=== PATIENT | male | born 1970 | race Asian ===

== ENCOUNTER 2017-09-22 16:16 | Inpatient (IN) | payer OTHER ==
[2017-09-22 17:59] VITALS: BMI 28.8
--- NOTE | 2017-09-22 20:40 | HP ---
CIWA Score - CIWA Score Nausea/Vomitin-Mild Nausea/No Vomiting Muscle Tremors: 4-Moderate,w/Arms Extend Anxiety: 4-Mod. Anxious/Guarded Agitation: 4-Moderately Restless Paroxysmal Sweats: No Perspiration Orientation: 0-Oriented Tacttile Disturbances: 0-None Auditory Disturbances: 0-None Visual Disturbances: 0-None Headache: 2-Mild CIWA-Ar Total Score: 15 Admission ROS BHS - HPI Chief Complaint: C/O WITHDRAWAL SX'S FROM ALCOHOL. SEEKING DETOX TXMENT. Allergies/Adverse Reactions: Allergies Allergy/AdvReac Type Severity Reaction Status Date / Time No Known Allergies Allergy Verified 09/22/17 20:51 History of Present Illness: 47 Y.O. MALE WITH LONG HX/O ALCOHOLISM SEEKING DETOX TXMENT. CLIENT WAS REFERRED BY [facility] AFTER PRESENTING THERE FOR DETOX. HE REPORTS LONGEST CLEAN TIME 28 DAYS WHILE IN A REHAB. LAST DETOX 3 WEEKS AGO AT [facility]. Exam Limitations: No Limitations - Ebola screening Have you traveled outside of the country in the last 21 days: No Have you had contact with anyone from an Ebola affected area: No Have you been sick,other than usual withdrawal symptoms: No Do you have a fever: No - Review of Systems Constitutional: Chills, Loss of Appetite, Night Sweats, Changes in sleep EENT: reports: Recent change in vision (" I NEED GLASSES") Respiratory: reports: No Symptoms reported Cardiac: reports: No Symptoms Reported GI: reports: Nausea, Poor Appetite, Poor Fluid Intake : reports: No Symptoms Reported Musculoskeletal: reports: No Symptoms Reported Integumentary: reports: No Symptoms Reported Neuro: reports: Seizure (LAST 09/07 HEAD INJURY) Hematology: reports: No Symptoms Reported Psychiatric: reports: Depressed Other Systems: Reviewed and Negative Patient History - Patient Medical History Hx Anemia: No Hx Asthma: No Hx Chronic Obstructive Pulmonary Disease (COPD): No Hx Cancer: No Hx Cardiac Disorders: No Hx Congestive Heart Failure: No Hx Hypertension: No Hx Hypercholesterolemia: No Hx Pacemaker: No HX Cerebrovascular Accident: No Hx Seizures: No Hx Dementia: No Hx Diabetes: No Hx Gastrointestinal Disorders: No Hx Liver Disease: No Hx Genitourinary Disorders: No Hx Sexually Transmitted Disorders: No Hx Renal Disease (ESRD): No Hx Thyroid Disease: No Hx Human Immunodeficiency Virus (HIV): No Hx Hepatitis C: No Hx Depression: Yes (CLARA AND SEROQUEL) Hx Suicide Attempt: No Hx Bipolar Disorder: No Hx Schizophrenia: No Other Medical History: DENIES - Patient Surgical History Past Surgical History: Yes Hx Cholecystectomy: Yes (2016) Hx Orthopedic Surgery: Yes (R A ND ;L HIP SX 2006, R KNEE FX REPAIR 2016) Anesthesia Reaction: No - PPD History Previous Implant?: Yes Documented Results: Positive w/o proof Implanted On Prior R Admission?: No PPD to be Administered?: No - Smoking Cessation Smoking history: Current every day smoker Have you smoked in the past 12 months: Yes Aproximately how many cigarettes per day: 20 Cigars Per Day: 0 Hx Chewing Tobacco Use: No Initiated information on smoking cessation: Yes 'Breaking Loose' booklet given: 09/22/17 - Substance & Tx. History Hx Alcohol Use: Yes Hx Substance Use: Yes Substance Use Type: Alcohol Hx Substance Use Treatment: Yes ([facility]) - Substances Abused VODKA Route: Oral Frequency: Daily Amount used: 8 PINTS Age of first use: 16 (MONTHS) Date of Last Use: 09/22/17 (3 PINTS) Family Disease History - Family Disease History Family Disease History: Heart Disease: Father (ALCOHOLISM), Mother, Other: Father, Brother (ALCOHOLISM), Sister (ALCOHOLISM ) Admission Physical Exam BHS - Vital Signs Vital Signs: Vital Signs - 24 hr 09/22/17 17:54 Temperature 97.6 F Pulse Rate 82 Respiratory 19 Rate Blood Pressure 132/81 - Physical General Appearance: Yes: Appropriately Dressed, Mild Distress, Tremorous, Anxious HEENTM: Yes: EOMI, Normocephalic, Normal Voice, MIGUEL, Pharynx Normal, Other ( MISSING TEETH) Respiratory: Yes: Chest Non-Tender, Lungs Clear, Normal Breath Sounds, No Respiratory Distress, No Accessory Muscle Use Neck: Yes: No masses,lesions,Nodules, Supple, Trachea in good position Breast: Yes: Breast Exam Deferred Cardiology: Yes: Regular Rhythm, Regular Rate, S1, S2 Abdominal: Yes: Normal Bowel Sounds, Non Tender, Soft, Protuberent, Surgical Scar Genitourinary: Yes: Within Normal Limits Back: Yes: Normal Inspection Musculoskeletal: Yes: full range of Motion, Gait Steady, Joint Stiffness Extremities: Yes: Normal Range of Motion, Non-Tender, Tremors, Other ( SUPERFICIAL ABRASIONS TO BLE) Neurological: Yes: Alert, Motor Strength 5/5, Normal Mood/Affect Integumentary: Yes: Normal Color, Dry, Warm Lymphatic: Yes: Within Normal Limits - Diagnostic (1) Alcohol dependence with uncomplicated withdrawal Current Visit: Yes Status: Chronic (2) Nicotine dependence Current Visit: Yes Status: Chronic Qualifiers: Nicotine product type: cigarettes Substance use status: uncomplicated Qualified Code(s): F17.210 - Nicotine dependence, cigarettes, uncomplicated (3) History of positive PPD Current Visit: Yes Status: Chronic Cleared for Admission [facility] - Detox or Rehab [facility] Level of Care: Medically Managed Detox Regimen/Protocol: Librium Claeared for Rehab Admission: No [facility] Breath Alcohol Content Breath Alcohol Content: 0 Urine Drug Screen - Results Drug Screen Negative: No Urine Drug Screen Results: BZO-Benzodiazepines
[2017-09-22] MEDS ORDERED: P-EPHED 60MG/TRIPROLIDI 2.5MG TABLET PO PRN (20:51)
[2017-09-22] MEDS ORDERED: NICOTINE POLACRILEX 4 MG GUM BC PRN (20:51)
[2017-09-22] MEDS ORDERED: MAGNESIUM CITRATE 300 ML BOTTLE PO PRN (20:51)
[2017-09-22] MEDS ORDERED: guaiFENesin/D-METHORPHAN HB 10 ML UNIT-DOSE CUPS PO PRN (20:51)
[2017-09-22] MEDS ORDERED: ACETAMINOPHEN 325 MG TABLET (FP) PO PRN (20:51)
[2017-09-22] MEDS ORDERED: hydrOXYzine PAMOATE 50 MG CAPSULE (FP) PO PRN (20:51)
[2017-09-22] MEDS ORDERED: MAGNESIUM HYDROX 2400MG/30ML ORAL SUSPENSION 30 ML CUP PO PRN (20:51)
[2017-09-22] MEDS ORDERED: MAG HYDROX/AL HYDROX/SIMETH 30 ML UNIT-DOSE CUP PO PRN (20:51)
[2017-09-22] MEDS ORDERED: MENTHOL/PHENOL 1 EACH UD MM PRN (20:51)
[2017-09-22] MEDS ORDERED: chlordiazePOXIDE HCL 25 MG CAPSULE PO PRN (20:51)
[2017-09-22] MEDS ORDERED: IBUPROFEN 400 MG TABLET (FP) PO PRN (20:51)
[2017-09-22] MEDS ORDERED: LOPERAMIDE HCL 2 MG CAPSULE PO PRN (20:51)
[2017-09-22] MEDS ORDERED: THIAMINE HCL 100 MG TABLET (FP) PO SCH (22:00)
[2017-09-22] MEDS: chlordiazePOXIDE HCL 25 MG CAPSULE PO SCH (22:47)
[2017-09-23 00:09] LABS: URINE APPEARANCE CLEAR; URINE BILIRUBIN NEGATIVE (NEGATIVE); URINE BLOOD NEGATIVE (NEGATIVE); URINE COLOR YELLOW; URINE GLUCOSE (UA) NEGATIVE (NEGATIVE); URINE KETONE NEGATIVE (NEGATIVE); URINE LEUK ESTERASE NEGATIVE (NEGATIVE); URINE NITRITE NEGATIVE (NEGATIVE); URINE PROTEIN NEGATIVE (NEGATIVE); URINE UROBILINOGEN NEGATIVE mg/dL (0.2-1.0)
[2017-09-23] MEDS: chlordiazePOXIDE HCL 25 MG CAPSULE PO SCH ×2 (06:17→11:05)
[2017-09-23 09:10] VITALS: BP 124/82; PULSE 76; TEMP 97.6
--- NOTE | 2017-09-23 09:58 | PN ---
S CIWA - CIWA Score Nausea/Vomitin Muscle Tremors: 3 Anxiety: 3 Agitation: 2 Paroxysmal Sweats: 1-Minimal Palms Moist Orientation: 0-Oriented Tacttile Disturbances: 1-Very Mild Itch/Numbness Auditory Disturbances: 1-Very Mild Visual Disturbances: 0-None Headache: 2-Mild CIWA-Ar Total Score: 16 BHS Progress Note (SOAP) Subjective: alert,irritable,anxious,interrupted sleep,tremor Objective: 09/23/17 09:56 Laboratory Last Values Urine Color Yellow 09/22/17 00:00 Urine Appearance Clear 09/22/17 00:00 Urine pH 6.0 (5.0-8.0) 09/22/17 00:00 Ur Specific [place] 1.024 (1.001-1.035) 09/22/17 00:00 Urine Protein Negative (NEGATIVE) 09/22/17 00:00 Urine Glucose (UA) Negative (NEGATIVE) 09/22/17 00:00 Urine Ketones Negative (NEGATIVE) 09/22/17 00:00 Urine Blood Negative (NEGATIVE) 09/22/17 00:00 Urine Nitrite Negative (NEGATIVE) 09/22/17 00:00 Urine Bilirubin Negative (NEGATIVE) 09/22/17 00:00 Urine Urobilinogen Negative mg/dL (0.2-1.0) 09/22/17 00:00 Ur Leukocyte Esterase Negative (NEGATIVE) 09/22/17 00:00 ekg nsr,normal ecg 09/23/17 09:57 labs pending Assessment: 09/23/17 09:57 withdrawal symptom Plan: continue detox
[2017-09-23] MEDS ORDERED: NICOTINE 21 MG/24 HOURS TOPICAL PATCH TD SCH (10:00)
[2017-09-23] MEDS ORDERED: PRENATAL VITAMINS W/ FOLIC ACID TABLET (FP) PO SCH (10:00)
--- NOTE | 2017-09-23 10:01 | PN ---
S Progress Note Note: patient did not want to complete treatment,seen by counselor,stated he is not ready to continue treatment,signed release ama
--- NOTE | 2017-09-23 10:04 | DS ---
[facility] Detox Discharge Summary Admission Date: 09/22/17 Discharge Date: 09/23/17 - History Present History: Alcohol Dependence Additional Comments: patient did not want to complete treatment,seen by counselor,not ready to continue treatment, encourage patient to stay but no avail,no suicidal,no homicidal,signed release ama left unit in stable condition Pertinent Past History: nicotine dependence positive ppd ocd depression - Physical Exam Results Vital Signs: Vital Signs Temperature 97.6 F 09/23/17 09:09 Pulse Rate 76 09/23/17 09:09 Respiratory Rate 09/23/17 09:09 Blood Pressure 124/82 09/23/17 09:09 O2 Sat by Pulse Oximetry (%) Pertinent Admission Physical Exam Findings: withdrawal sign and symptom - Medication Discharge Medications: Ambulatory Orders Citalopram Hydrobromide [Celexa -] 20 mg PO DAILY 09/22/17 Citalopram Hydrobromide [Celexa -] 40 mg PO DAILY 09/22/17 Quetiapine Fumarate [Seroquel -] 200 mg PO HS 09/22/17 - Diagnosis (1) Alcohol dependence with uncomplicated withdrawal Status: Chronic (2) History of positive PPD Status: Chronic (3) Nicotine dependence Status: Chronic Qualifiers: Nicotine product type: cigarettes Substance use status: uncomplicated Qualified Code(s): F17.210 - Nicotine dependence, cigarettes, uncomplicated (4) OCD (obsessive compulsive disorder) Status: Acute (5) Depression Status: Acute - AMA Did Patient Leave Against Medical Advice: Yes
[2017-09-23 10:55] LABS: HEMATOCRIT 39.5 % (35.4-49); HEMOGLOBIN 12.3 GM/dL (11.7-16.9); MCH 25.8 pg (25.7-33.7); MCHC 31.3 g/dl (32.0-35.9); MEAN CELL VOLUME 82.4 fl (80-96); MEAN PLT VOLUME 8.2 fl (7.5-11.1); PLATELET COUNT 288 K/MM3 (134-434); RBC 4.79 M/mm3 (4.00-5.60); RDW 18.9 % (11.9-15.9); WHITE BLOOD COUNT 6.7 K/mm3 (4.0-10.0)
[2017-09-23 11:08] LABS: ALBUMIN 3.3 g/dl (3.4-5.0); ANION GAP 8 (8-16); BLOOD UREA NITROGEN 19 mg/dL (7-18); CALCIUM 8.5 mg/dL (8.5-10.1); CHLORIDE 106 mmol/L (98-107); CO2 25 mmol/L (21-32); GLUCOSE,RANDOM 119 mg/dL (74-106); POTASSIUM 3.8 mmol/L (3.5-5.1); SODIUM 139 mmol/L (136-145)
--- NOTE | 2017-09-23 11:12 | EKG ---
Test Reason : Blood Pressure : / mmHG Vent. Rate : 070 BPM Atrial Rate : 070 BPM P-R Int : 128 ms QRS Dur : 092 ms QT Int : 394 ms P-R-T Axes : 066 -26 025 degrees QTc Int : 425 ms NORMAL SINUS RHYTHM NORMAL ECG NO PREVIOUS ECGS AVAILABLE Confirmed by MERCY JOHN MD ([id number]) on 09/23/2017 11:11:40 AM Referred By: Confirmed By:MERCY JOHN MD
[2017-09-23 11:14] LABS: ALK PHOS 130 U/L (45-117); BILIRUBIN,TOTAL 0.4 mg/dL (0.2-1.0); CREATININE 0.8 mg/dL (0.7-1.3); SGOT/AST 12 U/L (15-37); SGPT/ALT 16 U/L (12-78); TOT PROT 6.5 g/dl (6.4-8.2)
[2017-09-23] MEDS ORDERED: chlordiazePOXIDE HCL 25 MG CAPSULE PO SCH (23:00)
[2017-09-24] MEDS ORDERED: chlordiazePOXIDE 5 MG CAPSULE PO SCH (23:00)
[2017-09-25] MEDS ORDERED: chlordiazePOXIDE HCL 10 MG CAPSULE PO SCH (23:00)
== END 2017-09-23 10:25 | disposition left against medical advice (07) | DRG 894 ==
LOC: YASAS 16:16 → Y3N 20:14
PROVIDERS: ADMIT Internal Medicine; ATTEND Internal Medicine
PROC: HZ2ZZZZ Detoxification Services for Substance Abuse Treatment (ICD-10-PCS; principal; 2017-09-22)
DX: F10.230 Alcohol dependence with withdrawal, uncomplicated (principal); F17.210 Nicotine dependence, cigarettes, uncomplicated; F42.9 Obsessive-compulsive disorder, unspecified; F32.9 Major depressive disorder, single episode, unspecified
CPT/HCPCS: 36415; 80053; 81003; 85027; 86593; 86803; 87389; 93005; 93010

== ENCOUNTER 2018-04-23 13:25 | Inpatient (IN) | payer MEDICARE, OTHER ==
[2018-04-23 13:57] VITALS: BMI 27.3
--- NOTE | 2018-04-23 16:18 | HP ---
CIWA Score - CIWA Score Nausea/Vomitin-No Nausea/No Vomiting Muscle Tremors: None Anxiety: 0-No Anxiety, at Ease Agitation: 0-Normal Activity Paroxysmal Sweats: No Perspiration Orientation: 0-Oriented Tacttile Disturbances: 0-None Auditory Disturbances: 0-None Visual Disturbances: 0-None Headache: 0-None Present CIWA-Ar Total Score: 0 Admission ROS BHS - HPI Chief Complaint: pt here reports drinking since childhood , currently 8 pints/day , denies symptoms if not drinking, denies seizures recently , had seizure in the past was on Keppra stopped taking in 2011 , latest use this morning , referred by [facility] . Denies tremors . latest detox [facility] 1 mo ago tobacco : 2 ppd , requesting nrt w/ patch pmhx : left knee patella frx 2/2 mechanical fall 2 mo ago , depression , decreased vision after blood transfusion 2017 pshx : mehnaz THR 2005, 2006 AVN 2/2 decompression sickness stopped 20 yrs ago , left knee x 2 1 1/2 mo ago , capo 2017 meds : seroquel, Celexa - did not bring , latest taken 1 mo ago , does not have prescriber . utox + bzo, bac0.000 Allergies/Adverse Reactions: Allergies Allergy/AdvReac Type Severity Reaction Status Date / Time milk AdvReac DIARRHEA Verified 09/22/17 21:48 - Ebola screening Have you traveled outside of the country in the last 21 days: No Have you had contact with anyone from an Ebola affected area: No Have you been sick,other than usual withdrawal symptoms: No Do you have a fever: No - Review of Systems Constitutional: See HPI EENT: reports: See HPI, Blurred Vision Respiratory: reports: See HPI Cardiac: reports: See HPI GI: reports: See HPI : reports: No Symptoms Reported Musculoskeletal: reports: Joint Pain Integumentary: reports: No Symptoms Reported Neuro: reports: Other (antalgic gait 2/2 left knee pain) Endocrine: reports: No Symptoms Reported Psychiatric: reports: Depressed Patient History - Patient Medical History Hx Anemia: No Hx Asthma: No Hx Chronic Obstructive Pulmonary Disease (COPD): No Hx Cancer: No Hx Cardiac Disorders: No Hx Congestive Heart Failure: No Hx Hypertension: No Hx Hypercholesterolemia: No Hx Pacemaker: No HX Cerebrovascular Accident: No Hx Seizures: No Hx Dementia: No Hx Diabetes: No Hx Gastrointestinal Disorders: No Hx Liver Disease: No Hx Genitourinary Disorders: No Hx Sexually Transmitted Disorders: No Hx Renal Disease (ESRD): No Hx Thyroid Disease: No Hx Human Immunodeficiency Virus (HIV): No Hx Hepatitis C: No Hx Depression: Yes (CELEXA AND SEROQUEL) Hx Suicide Attempt: No Hx Bipolar Disorder: No Hx Schizophrenia: No - Patient Surgical History Past Surgical History: Yes Hx Cholecystectomy: Yes (2017) Hx Orthopedic Surgery: Yes (R A ND ;L HIP SX 2006, R KNEE FX REPAIR 2016) Anesthesia Reaction: No - Smoking Cessation Smoking history: Current every day smoker Have you smoked in the past 12 months: Yes Aproximately how many cigarettes per day: 20 Cigars Per Day: 0 Hx Chewing Tobacco Use: No Initiated information on smoking cessation: No Family Disease History - Family Disease History Family Disease History: Heart Disease: Father (ALCOHOLISM), Mother, Other: Father, Brother (ALCOHOLISM), Sister (ALCOHOLISM ) Admission Physical Exam BHS - Vital Signs Vital Signs: Vital Signs - 24 hr 04/23/18 13:56 Temperature 97.2 F L Pulse Rate 106 H Respiratory 17 Rate Blood Pressure 159/99 - Physical General Appearance: Yes: Within Normal Limits, Nourished, Appropriately Dressed , Mild Distress HEENTM: Yes: Within Normal Limits, EOMI, Hearing grossly Normal, Normal ENT Inspection, Normocephalic, Normal Voice, MIGUEL, Pharynx Normal Respiratory: Yes: Within Normal Limits, Chest Non-Tender, Lungs Clear, Normal Breath Sounds, No Respiratory Distress, No Accessory Muscle Use Neck: Yes: Within Normal Limits, No masses,lesions,Nodules, Trachea in good position Breast: Yes: Within Normal Limits, Axillae without masses, Breasts Symetrical, No Discharge, No masses Cardiology: Yes: Within Normal Limits, Regular Rhythm, Regular Rate, Tachycardia Abdominal: Yes: Within Normal Limits, Normal Bowel Sounds, Non Tender, Flat, Soft, Surgical Scar Back: Yes: Within Normal Limits, Normal Inspection Musculoskeletal: Yes: Joint Stiffness, Other (antalgic gait, limping L side) Extremities: Yes: Within Normal Limits, Normal Capillary Refill, Tremors, Other (left knee pain s/p surgery mehnaz THR) Neurological: Yes: Within Normal Limits, Fully Oriented, Alert, Motor Strength 5 /5, Normal Mood/Affect, Normal Response, Depressed Affect Integumentary: Yes: Within Normal Limits, Normal Color, Dry, Warm, Other ( surgical scars) BHS Breath Alcohol Content Breath Alcohol Content: 0 Urine Drug Screen - Results Drug Screen Negative: No Urine Drug Screen Results: BZO-Benzodiazepines
[2018-04-23] MEDS ORDERED: MAGNESIUM HYDROX 2400MG/30ML ORAL SUSPENSION 30 ML CUP PO PRN (16:29)
[2018-04-23] MEDS ORDERED: ACETAMINOPHEN 325 MG TABLET (FP) PO PRN (16:29)
[2018-04-23] MEDS ORDERED: MAGNESIUM CITRATE 300 ML BOTTLE PO PRN (16:29)
[2018-04-23] MEDS ORDERED: MAG HYDROX/AL HYDROX/SIMETH 30 ML UNIT-DOSE CUP PO PRN (16:29)
[2018-04-23] MEDS ORDERED: IBUPROFEN 400 MG TABLET (FP) PO PRN (16:29)
[2018-04-23] MEDS ORDERED: chlordiazePOXIDE HCL 25 MG CAPSULE PO SCH (17:00)
[2018-04-23] MEDS ORDERED: METOPROLOL TARTRATE 25 MG TABLET (FP) PO ONE (17:45)
--- NOTE | 2018-04-23 19:51 | PN ---
[facility] Progress Note Note: Vital Signs Temperature 97.2 F L 04/23/18 13:56 Pulse Rate 106 H 04/23/18 13:56 Respiratory Rate 17 04/23/18 13:56 Blood Pressure 159/99 04/23/18 13:56 O2 Sat by Pulse Oximetry (%) Patient left the premises after seen by the admitting provider, and returned from the store with very unsteady and staggering gait. Patient RUFUS 0.313 at this time. Patient very intoxicated. Patient was sent to [facility] via [facility] for further evaluation. Attempted to endorse patient to provider at [facility] without success.
[2018-04-23] MEDS ORDERED: MELATONIN 5 MG TABLETS PO PRN (22:00)
[2018-04-23] MEDS ORDERED: THIAMINE HCL 100 MG TABLET (FP) PO SCH (22:00)
--- NOTE | 2018-04-24 08:59 | CONSULT ---
[facility] Psychiatric Consult - Data Date of interview: 04/24/18 Admission source: [facility] Identifying data: Patient is a 47 year old male, , without children, unemployed, homeless, and is supported by SSI/SSD. This is one of multiple admissions for patient. Pt. admitted to for alcohol and opiate dependence. Substance Abuse History: Alcohol - 8 pints daily. Heroin - 4-5 bags daily. Nicotie- 2 packs daily Medical History: (R A ND ;L HIP SX 2007, R KNEE FX REPAIR 2017 Psychiatric History: Patient reports two psychiatric hospitalizations ([facility] and other hospital he can't recall). Mr. Hampton used to see an outpatient psychiatrist over five years ago. After his psychiatrist relocated Mr. Hampton did not seek additional outpatient psychiatric care. He reports taking celexa and seroquel when admitted to detox/rehab facilities. Most recently accepted celexa and seroquel while in detox at [facility]. Pharmacy claims reviewed and noted a prescription of Celexa 20mg + Seroquel 50mg was electronically sent to patient's pharmacy on 04/19/18. Pt. denies h/o suicide attempt. Physical/Sexual Abuse/Trauma History: Denies. Additional Comment: [facility] Mental Status Exam - Mental Status Exam Alert and Oriented to: Time, Place, Person Cognitive Function: Good Patient Appearance: Unkempt (Maldorous) Mood: Euthymic Affect: Mood Congruent Patient Behavior: Appropriate, Cooperative Speech Pattern: Appropriate Voice Loudness: Normal Thought Process: Intact, Goal Oriented Thought Disorder: Not Present Hallucinations: Denies Suicidal Ideation: Denies Homicidal Ideation: Denies Insight/Judgement: Poor Sleep: Fair Appetite: Fair Muscle strength/Tone: Normal Gait/Station: Normal Psychiatric Findings - Problem List ([place] 1, 2,3) (1) Alcohol dependence with uncomplicated withdrawal Current Visit: Yes Status: Acute (2) Nicotine dependence Current Visit: Yes Status: Chronic Qualifiers: Nicotine product type: cigarettes Substance use status: uncomplicated Qualified Code(s): F17.210 - Nicotine dependence, cigarettes, uncomplicated (3) Alcohol-induced mood disorder Current Visit: Yes Status: Acute (4) Insomnia Current Visit: Yes Status: Acute - Initial Treatment Plan Initial Treatment Plan: Psychoeducation provided. Detoxification in progress. Will order Celexa 20mg daily + Seroquel 50mg qhs. Benefits and side effects discussed. Verbal consent given.
[2018-04-24] MEDS ORDERED: chlordiazePOXIDE HCL 25 MG CAPSULE PO PRN (09:17)
[2018-04-24] MEDS ORDERED: CITALOPRAM HYDROBROMIDE 20 MG TABLET (FP) PO SCH (10:00)
[2018-04-24] MEDS ORDERED: PRENATAL VITAMINS W/ FOLIC ACID TABLET (FP) PO SCH (10:00)
[2018-04-24] MEDS ORDERED: NICOTINE 21 MG/24 HOURS TOPICAL PATCH TD SCH (10:00)
--- NOTE | 2018-04-24 11:44 | PN ---
BHS CIWA - CIWA Score Nausea/Vomitin Muscle Tremors: 2 Anxiety: 2 Agitation: 2 Paroxysmal Sweats: 2 Orientation: 0-Oriented Tacttile Disturbances: 2-Mild Itch/Numbness/Burn Auditory Disturbances: 0-None Visual Disturbances: 0-None Headache: 0-None Present CIWA-Ar Total Score: 12 BHS Progress Note (SOAP) Subjective: interrupteed sleep , sweats , left knee pain , wants a cane Objective: 04/24/18 11:46 Vital Signs Temperature 98.2 F 04/24/18 09:38 Pulse Rate 80 04/24/18 09:38 Respiratory Rate 16 04/24/18 09:38 Blood Pressure 102/62 04/24/18 09:38 O2 Sat by Pulse Oximetry (%) pending labs pt aox3 in nad ambulating with slight limp 04/24/18 11:46 Assessment: 04/24/18 11:47 withdrawal sx's left knee pain h/o opioid abuse -not recent Plan: cont. detox increasse fluids cane motrin prn f/up pending labs
--- NOTE | 2018-04-24 13:12 | EKG ---
Test Reason : Blood Pressure : / mmHG Vent. Rate : 084 BPM Atrial Rate : 084 BPM P-R Int : 112 ms QRS Dur : 088 ms QT Int : 376 ms P-R-T Axes : 067 -27 012 degrees QTc Int : 444 ms NORMAL SINUS RHYTHM NORMAL ECG WHEN COMPARED WITH ECG OF 22-SEP-2017 22:30, NO SIGNIFICANT CHANGE WAS FOUND Confirmed by PASCUAL DAN MD ([id number]) on 04/24/2018 1:12:24 PM Referred By: Confirmed By:PASCUAL DAN MD
[2018-04-24] MEDS: chlordiazePOXIDE HCL 25 MG CAPSULE PO SCH ×2 (18:04→22:24)
[2018-04-24] MEDS ORDERED: QUEtiapine FUMARATE 50 MG TABLET PO SCH (22:00)
[2018-04-25 06:17] VITALS: BP 152/90; PULSE 62; TEMP 97
[2018-04-25] MEDS: chlordiazePOXIDE HCL 25 MG CAPSULE PO SCH (06:37)
--- NOTE | 2018-04-25 15:51 | DS ---
[facility] Detox Discharge Summary Admission Date: 04/23/18 Discharge Date: 04/25/18 - History Present History: Alcohol Dependence, Sedative Dependence Additional Comments: 47 years old male admitted on 04/23/18 for alcohol and benzo withdrawal sx insists to leave the detox unit that "my is pregnan" denies alcohol withdrawal sx ambulate with cane stead gait - Physical Exam Results Vital Signs: Vital Signs Temperature 97 F L 04/25/18 06:16 Pulse Rate 62 04/25/18 06:16 Respiratory Rate 16 04/25/18 06:16 Blood Pressure 152/90 04/25/18 06:16 O2 Sat by Pulse Oximetry (%) Pertinent Admission Physical Exam Findings: alcohol and banzo withdrawal sx Vital Signs Temperature 97 F L 04/25/18 06:16 Pulse Rate 62 04/25/18 06:16 Respiratory Rate 16 04/25/18 06:16 Blood Pressure 152/90 04/25/18 06:16 O2 Sat by Pulse Oximetry (%) lab not available - Treatment Hospital Course: Detox Protocol Followed, Responded well Patient has Accepted a Rehab Referral to: as per counselor arranged - Medication Discharge Medications: Ambulatory Orders Citalopram Hydrobromide [Celexa -] 40 mg PO DAILY 09/22/17 Quetiapine Fumarate [Seroquel -] 200 mg PO HS 09/22/17 - Diagnosis (1) Alcohol dependence with uncomplicated withdrawal Status: Acute (2) Nicotine dependence Status: Acute Qualifiers: Nicotine product type: cigarettes Substance use status: in withdrawal Qualified Code(s): F17.213 - Nicotine dependence, cigarettes, with withdrawal - AMA Did Patient Leave Against Medical Advice: Yes
[2018-04-25] MEDS ORDERED: chlordiazePOXIDE 5 MG CAPSULE PO SCH (17:00)
[2018-04-26] MEDS ORDERED: chlordiazePOXIDE HCL 10 MG CAPSULE PO SCH (17:00)
== END 2018-04-25 09:33 | disposition left against medical advice (07) | DRG 894 ==
LOC: YASAS 13:25 → Y6N 17:39
PROC: HZ2ZZZZ Detoxification Services for Substance Abuse Treatment (ICD-10-PCS; principal; 2018-04-23)
DX: F10.230 Alcohol dependence with withdrawal, uncomplicated (principal); F13.230 Sedative, hypnotic or anxiolytic dependence with withdrawal, uncomplicated; F17.213 Nicotine dependence, cigarettes, with withdrawal; F10.24 Alcohol dependence with alcohol-induced mood disorder; F32.9 Major depressive disorder, single episode, unspecified; G47.00 Insomnia, unspecified; R76.11 Nonspecific reaction to tuberculin skin test without active tuberculosis; Z96.643 Presence of artificial hip joint, bilateral; Z90.49 Acquired absence of other specified parts of digestive tract; Z86.69 Personal history of other diseases of the nervous system and sense organs
CPT/HCPCS: 71046-TC-FY; 93005; 93010; 99282-25

== ENCOUNTER 2018-04-23 20:13 | Emergency (ER) | payer OTHER ==
[2018-04-23 20:43] VITALS: TEMP 98.2; BMI 27.6
--- NOTE | 2018-04-24 00:09 | PDOC ---
History of Present Illness - General Chief Complaint: Alcohol intoxication Stated Complaint: INTOX Time Seen by Provider: 04/23/18 20:50 Past History - Past Medical History Allergies/Adverse Reactions: Allergies Allergy/AdvReac Type Severity Reaction Status Date / Time No Known Drug Allergies Allergy Verified 04/23/18 20:39 milk AdvReac DIARRHEA Verified 04/23/18 20:39 Home Medications: Ambulatory Orders Citalopram Hydrobromide [Celexa -] 40 mg PO DAILY 09/22/17 Quetiapine Fumarate [Seroquel -] 200 mg PO HS 09/22/17 Anemia: No Asthma: No Cancer: No Cardiac Disorders: No CVA: No COPD: No CHF: No Dementia: No Diabetes: No GI Disorders: No Disorders: No HTN: No Hypercholesterolemia: No Kidney Stones: No Liver Disease: No Seizures: No Thyroid Disease: No - Surgical History Abdominal Surgery: No Appendectomy: No Cardiac Surgery: No Cholecystectomy: Yes (2016) Lung Surgery: No Neurologic Surgery: No Orthopedic Surgery: Yes (R A ND ;L HIP SX 2006, R KNEE FX REPAIR 2016) - Reproductive History Testicular Surgery: No - Suicide/Smoking/Psychosocial Hx Smoking History: Current every day smoker Have you smoked in the past 12 months: Yes Number of Cigarettes Smoked Daily: 20 Cigars Per Day: 0 Information on smoking cessation initiated: No 'Breaking Loose' booklet given: 09/22/17 Hx Alcohol Use: Yes (unknown) Drug/Substance Use Hx: Yes (heroin) Substance Use Type: Alcohol Hx Substance Use Treatment: Yes ([facility]) *Physical Exam - Vital Signs Last Vital Signs Temp Pulse Resp BP Pulse Ox 98.2 F 93 H 16 104/66 92 L 04/23/18 20:20 04/23/18 20:20 04/23/18 20:20 04/23/18 20:20 04/23/18 20:20 Medical Decision Making - Medical Decision Making 04/24/18 00:08 Entered Late: Pt is a 47 y/o M who presents to the ED for ETOH intoxication. Pt was seen at [facility] earlier today, left the premise and drank approximatley 8 pints of vodka. He went back to [facility] for detox and was sent over for acute intox. *DC/Admit/Observation/Transfer Diagnosis at time of Disposition: Alcohol intoxication Qualifiers: Complication of substance-induced condition: uncomplicated Qualified Code(s): F10.920 - Alcohol use, unspecified with intoxication, uncomplicated - Discharge Dispostion Disposition: HOME Condition at time of disposition: Stable Decision to Admit order: No - Referrals Referrals: Luiz Rees MD [Staff Physician] - - Patient Instructions Printed Discharge Instructions: DI for Alcohol Abuse Additional Instructions: Go to [facility] for detox from alcohol Avoid drinking alcohol drink plenty of water Return to the ED for any new or worsening symptoms - Post Discharge Activity
[2018-04-24 03:58] VITALS: BP 107/63; PULSE 82
== END 2018-04-24 06:57 | disposition home or self-care (01) ==
LOC: JER 20:13
DX: F10.120 Alcohol abuse with intoxication, uncomplicated (principal); Y90.9 Presence of alcohol in blood, level not specified
CPT/HCPCS: 99282-25

== ENCOUNTER 2018-09-14 12:53 | Inpatient (IN) | payer MEDICARE, OTHER ==
--- NOTE | 2018-09-14 16:28 | HP ---
CIWA Score Nausea/Vomitin-Mild Nausea/No Vomiting Muscle Tremors: 3 Anxiety: 3 Agitation: 2 Paroxysmal Sweats: No Perspiration Orientation: 0-Oriented Tacttile Disturbances: 0-None Auditory Disturbances: 0-None Visual Disturbances: 0-None Headache: 3-Moderate CIWA-Ar Total Score: 12 - Admission Criteria OASAS Guidelines: Admission for Medically Managed Detox: Requires at least one of the followin. CIWA greater than 12 2. Seizures within the past 24 hours 3. Delirium tremens within the past 24 hours 4. Hallucinations within the past 24 hours 5. Acute intervention needed for co occurring medical disorder 6. Acute intervention needed for co occurring psychiatric disorder 7. Severe withdrawal that cannot be handled at a lower level of care (continued vomiting, continued diarrhea, abnormal vital signs) requiring intravenous medication and/or fluids 8. Patient presents the following: CIWA greater than 12 Admission Criteria Met: Admission criteria met Admission ROS [facility] Chief Complaint: detox from alcohol 48 yo with h/o knee problems, uses cane for ambulation, not on any meds. pt was last here in 04/2018. alcohol- uses 4 pints of vodka a day, no h/o seizures/DT's, tobacco : 2 ppd , requesting nrt w/ patch heroin- 3-4 times a year pmhx : left knee patella frx 2/2 mechanical fall 2 mo ago , depression , decreased vision after blood transfusion 2017 pshx : mehnaz THR 2005, 2006 AVN 2/2 decompression sickness stopped 20 yrs ago , left knee x 2 1 1/2 mo ago , capo 2018 utox + bzo, bar rama 0.130 DUR: suboxone 8mg strips: #14 on 08/20- pt denies knowledge about this prescription Allergies/Adverse Reactions: Allergies Allergy/AdvReac Type Severity Reaction Status Date / Time No Known Drug Allergies Allergy Verified 09/14/18 18:42 milk AdvReac DIARRHEA Verified 09/14/18 18:42 Exam Limitations: No Limitations - Ebola screening Have you traveled outside of the country in the last 21 days: No (N) Have you had contact with anyone from an Ebola affected area: No Have you been sick,other than usual withdrawal symptoms: No Do you have a fever: No - Review of Systems Constitutional: No Symptoms Reported EENT: reports: No Symptoms Reported Patient History - Patient Medical History Hx Anemia: No Hx Asthma: No Hx Chronic Obstructive Pulmonary Disease (COPD): No Hx Cancer: No Hx Cardiac Disorders: No Hx Congestive Heart Failure: No Hx Hypertension: No Hx Hypercholesterolemia: No Hx Pacemaker: No HX Cerebrovascular Accident: No Hx Seizures: No Hx Dementia: No Hx Diabetes: No Hx Gastrointestinal Disorders: No Hx Liver Disease: No Hx Genitourinary Disorders: No Hx Sexually Transmitted Disorders: No Hx Renal Disease (ESRD): No Hx Thyroid Disease: No Hx Human Immunodeficiency Virus (HIV): No Hx Hepatitis C: No Hx Depression: Yes (CELEXA AND SEROQUEL- not taking) Hx Suicide Attempt: No Hx Bipolar Disorder: No Hx Schizophrenia: No - Patient Surgical History Past Surgical History: Yes Hx Neurologic Surgery: No Hx Cataract Extraction: No Hx Cardiac Surgery: No Hx Lung Surgery: No Hx Breast Surgery: No Hx Breast Biopsy: No Hx Abdominal Surgery: Yes (gallbladder surgery) Hx Appendectomy: No Hx Cholecystectomy: Yes (2016) Hx Genitourinary Surgery: No Hx Section: No Hx Orthopedic Surgery: Yes (R A ND ;L HIP SX 2006, R KNEE FX REPAIR 2016) Anesthesia Reaction: No - PPD History Documented Results: Positive w/proof PPD to be Administered?: No - Smoking Cessation Smoking history: Current every day smoker Have you smoked in the past 12 months: Yes Aproximately how many cigarettes per day: 40 Cigars Per Day: 0 Hx Chewing Tobacco Use: No Initiated information on smoking cessation: Yes 'Breaking Loose' booklet given: 09/14/18 - Substance & Tx. History Substance Use Type: Alcohol, Opiates - Substances Abused Alcohol Route: Oral Frequency: Daily Amount used: 1 LITER Age of first use: 1 Date of Last Use: 09/13/18 Family Disease History - Family Disease History Family Disease History: Heart Disease: Father (ALCOHOLISM), Mother, Other: Father, Brother (ALCOHOLISM), Sister (ALCOHOLISM ) Admission Physical Exam BHS - Vital Signs Vital Signs: Vital Signs - 24 hr 09/14/18 14:10 Temperature 96.3 F L Pulse Rate 75 Respiratory 20 Rate Blood Pressure 125/76 - Physical General Appearance: Yes: Within Normal Limits, Other (face ruborous) HEENTM: Yes: Within Normal Limits, Hearing grossly Normal, Normal Voice, MIGUEL, Pharynx Normal Respiratory: Yes: Within Normal Limits, Lungs Clear Neck: Yes: Within Normal Limits Cardiology: Yes: Within Normal Limits Abdominal: Yes: Within Normal Limits, Surgical Scar Back: Yes: Within Normal Limits Musculoskeletal: Yes: Within Normal Limits, Other (uses cane to ambulate) Extremities: Yes: Within Normal Limits, Normal Capillary Refill, Other Neurological: Yes: Within Normal Limits, social work case manager II-XII NML intact, Fully Oriented, Other (able to weight bear) Integumentary: Yes: Other (rash on face) Lymphatic: Yes: Within Normal Limits - Diagnostic (1) Alcohol dependence with uncomplicated withdrawal Current Visit: Yes Status: Acute (2) Nicotine dependence Current Visit: Yes Status: Chronic Qualifiers: Nicotine product type: cigarettes Substance use status: in withdrawal Qualified Code(s): F17.213 - Nicotine dependence, cigarettes, with withdrawal (3) History of positive PPD Current Visit: Yes Status: Chronic BHS Breath Alcohol Content Breath Alcohol Content: 0.130 Urine Drug Screen - Results Drug Screen Negative: No Urine Drug Screen Results: BAR-Barbiturates, BZO-Benzodiazepines Inpatient Rehab Admission - Rehab Decision to Admit Inpatient rehab admission?: No
[2018-09-14] MEDS ORDERED: guaiFENesin/D-METHORPHAN HB 10 ML UNIT-DOSE CUPS PO PRN (16:36)
[2018-09-14] MEDS ORDERED: LOPERAMIDE HCL 2 MG CAPSULE PO PRN (16:36)
[2018-09-14] MEDS ORDERED: P-EPHED 60MG/TRIPROLIDI 2.5MG TABLET PO PRN (16:36)
[2018-09-14] MEDS ORDERED: chlordiazePOXIDE HCL 25 MG CAPSULE PO PRN (16:36)
[2018-09-14] MEDS ORDERED: MAGNESIUM HYDROX 2400MG/30ML ORAL SUSPENSION 30 ML CUP PO PRN (16:36)
[2018-09-14] MEDS ORDERED: MAGNESIUM CITRATE 300 ML BOTTLE PO PRN (16:36)
[2018-09-14] MEDS ORDERED: MENTHOL/PHENOL 1 EACH UD MM PRN (16:36)
[2018-09-14] MEDS ORDERED: MAG HYDROX/AL HYDROX/SIMETH 30 ML UNIT-DOSE CUP PO PRN (16:36)
[2018-09-14] MEDS ORDERED: chlordiazePOXIDE HCL 25 MG CAPSULE PO ONE (18:00)
[2018-09-14] MEDS: chlordiazePOXIDE HCL 25 MG CAPSULE PO SCH ×2 (18:27→22:44)
[2018-09-14] MEDS: hydrOXYzine PAMOATE 50 MG CAPSULE (FP) PO PRN (19:20)
[2018-09-14] MEDS ORDERED: NICOTINE POLACRILEX 2 MG GUM BUC PRN (19:54)
[2018-09-14] MEDS: ACETAMINOPHEN 325 MG TABLET (FP) PO PRN (19:54)
[2018-09-14] MEDS: IBUPROFEN 400 MG TABLET (FP) PO PRN (22:43)
[2018-09-14] MEDS: THIAMINE HCL 100 MG TABLET (FP) PO SCH (22:44)
[2018-09-14] MEDS: MELATONIN 5 MG TABLETS PO PRN (22:45)
[2018-09-15] MEDS: chlordiazePOXIDE HCL 25 MG CAPSULE PO SCH ×4 (05:43→22:34)
[2018-09-15 10:16] LABS: HEMOGLOBIN 13.9 GM/dL (11.7-16.9); MCH 27.7 pg (25.7-33.7); MEAN PLT VOLUME 8.4 fl (7.5-11.1); PLATELET COUNT 261 K/MM3 (134-434); RBC 4.99 M/mm3 (4.00-5.60); RDW 15.9 % (11.9-15.9); WHITE BLOOD COUNT 6.6 K/mm3 (4.0-10.0)
[2018-09-15 10:24] LABS: ALBUMIN 3.3 g/dl (3.4-5.0); ALK PHOS 100 U/L (45-117); ANION GAP 4 MMOL/L (8-16); BILIRUBIN,TOTAL 0.3 mg/dL (0.2-1); BLOOD UREA NITROGEN 23 mg/dL (7-18); CHLORIDE 105 mmol/L (98-107); CO2 29 mmol/L (21-32); CREATININE 0.8 mg/dL (0.55-1.3); GLUCOSE,RANDOM 86 mg/dL (74-106); POTASSIUM 4.2 mmol/L (3.5-5.1); SGOT/AST 41 U/L (15-37); SGPT/ALT 84 U/L (13-61); SODIUM 139 mmol/L (136-145); TOT PROT 6.7 g/dl (6.4-8.2)
[2018-09-15] MEDS: PRENATAL VITAMINS W/ FOLIC ACID TABLET (FP) PO SCH (10:39)
[2018-09-15] MEDS: NICOTINE 21 MG/24 HOURS TOPICAL PATCH TD SCH (10:39)
[2018-09-15] MEDS: ACETAMINOPHEN 325 MG TABLET (FP) PO PRN ×2 (10:41→17:47)
[2018-09-15 11:33] LABS: URINE APPEARANCE CLEAR; URINE BILIRUBIN NEGATIVE (<2.0 mg/dL); URINE COLOR YELLOW; URINE GLUCOSE (UA) NEGATIVE (NEGATIVE); URINE KETONE NEGATIVE (NEGATIVE); URINE LEUK ESTERASE NEGATIVE (NEGATIVE); URINE NITRITE NEGATIVE (NEGATIVE); URINE PROTEIN NEGATIVE (NEGATIVE); URINE UROBILINOGEN NEGATIVE mg/dL (0.2-1.0)
--- NOTE | 2018-09-15 18:21 | PN ---
S CIWA - CIWA Score Nausea/Vomitin Muscle Tremors: 4-Moderate,w/Arms Extend Anxiety: 4-Mod. Anxious/Guarded Agitation: 4-Moderately Restless Paroxysmal Sweats: 3 Orientation: 0-Oriented Tacttile Disturbances: 0-None Auditory Disturbances: 0-None Visual Disturbances: 0-None Headache: 0-None Present CIWA-Ar Total Score: 17 BHS Progress Note (SOAP) Subjective: Diarrhea x 2 Objective: 09/15/18 18:20 Last Vital Signs Temp Pulse Resp BP Pulse Ox 98.2 F 62 18 117/55 L 09/15/18 13:33 09/15/18 13:33 09/15/18 13:33 09/15/18 13:33 Laboratory Tests 09/14/18 09/15/18 09/15/18 10:57 07:45 07:45 WBC 6.6 RBC 4.99 Hgb 13.9 Hct 42.0 MCV 84.0 MCH 27.7 MCHC 33.0 RDW 15.9 D Plt Count 261 MPV 8.4 Sodium 139 Potassium 4.2 Chloride 105 Carbon Dioxide 29 Anion Gap 4 L BUN 23 H Creatinine 0.8 Creat Clearance w eGFR > 60 Random Glucose 86 Calcium 9.0 Total Bilirubin 0.3 AST 41 H ALT 84 H Alkaline Phosphatase 100 Total Protein 6.7 Albumin 3.3 L Urine Color Yellow Urine Appearance Clear Urine pH 6.0 Ur Specific [place] 1.015 Urine Protein Negative Urine Glucose (UA) Negative Urine Ketones Negative Urine Blood Negative Urine Nitrite Negative Urine Bilirubin Negative Urine Urobilinogen Negative Ur Leukocyte Esterase Negative RPR Titer 09/15/18 07:45 WBC RBC Hgb Hct MCV MCH MCHC RDW Plt Count MPV Sodium Potassium Chloride Carbon Dioxide Anion Gap BUN Creatinine Creat Clearance w eGFR Random Glucose Calcium Total Bilirubin AST ALT Alkaline Phosphatase Total Protein Albumin Urine Color Urine Appearance Urine pH Ur Specific [place] Urine Protein Urine Glucose (UA) Urine Ketones Urine Blood Urine Nitrite Urine Bilirubin Urine Urobilinogen Ur Leukocyte Esterase RPR Titer Nonreactive Labs reviewed: bun 23 Assessment: 09/15/18 18:20 Withdrawal symptoms Noted with azotemia Plan: Continue detox Azotemia: encouraged PO water hydration
[2018-09-15] MEDS: IBUPROFEN 400 MG TABLET (FP) PO PRN (22:34)
[2018-09-15] MEDS: THIAMINE HCL 100 MG TABLET (FP) PO SCH (22:34)
[2018-09-15] MEDS: MELATONIN 5 MG TABLETS PO PRN (22:35)
[2018-09-15] MEDS: hydrOXYzine PAMOATE 50 MG CAPSULE (FP) PO PRN (23:16)
[2018-09-16] MEDS: chlordiazePOXIDE HCL 25 MG CAPSULE PO SCH ×2 (05:47→10:33)
--- NOTE | 2018-09-16 07:31 | CONSULT ---
[facility] Psychiatric Consult - Data Date of interview: 09/16/18 Admission source: [facility] Identifying data: This is a 48 years old obese male, ambulating with cane, , childless, living alone, unemployed, on SSI support, with history of psychiatric hospotalization history, history of Alcohol, Opioids and Nicotine dependence, is here reporting withdrawal symptoms and seeking for detox. Substance Abuse History: Smoking history: Current every day smoker. Have you smoked in the past 12 months: Yes. Aproximately how many cigarettes per day: 40. Cigars Per Day: 0. Hx Chewing Tobacco Use: No. Initiated information on smoking cessation: Yes. 'Breaking Loose' booklet given: 09/14/18. - Substance & Tx. History. Substance Use Type: Alcohol, Opiates. alcohol- uses 4 pints of vodka a day, no h/o seizures/DT's,. tobacco : 2 ppd , requesting nrt w/ patch. heroin- 3-4 times a year Medical History: Obesity, Ambulates with cane, PPD+ history, Azothemia history Psychiatric History: Patient reports history of depression and anxiety, OCD, Reports unclear psychiatric admission on morte then 10 years ago, reports taking prior to admission: Celexa 40mg poqd. Seroquel 200mg po qhs. Denies suicidal, homicdial huistory Physical/Sexual Abuse/Trauma History: Denies Additional Comment: Celexa 40mg poqd. Seroquel 200mg po qhs Mental Status Exam - Mental Status Exam Alert and Oriented to: Person Cognitive Function: Fair Patient Appearance: Unkempt Mood: Sad Affect: Flat Voice Loudness: Mildly Soft/Quiet Thought Process: Goal Oriented Thought Disorder: Being Controlled Hallucinations: Denies Suicidal Ideation: Denies Homicidal Ideation: Denies Insight/Judgement: Fair Sleep: Difficulty falling asleep Appetite: Weight gain Muscle strength/Tone: Mild Hypotonicity Gait/Station: Deferred Additional Comments: Celexa 40mg poqd. Seroquel 200mg po qhs Psychiatric Findings - Problem List ([place] 1, 2,3) (1) Alcohol dependence with uncomplicated withdrawal Current Visit: Yes Status: Acute (2) Nicotine dependence Current Visit: Yes Status: Chronic Qualifiers: Nicotine product type: cigarettes Substance use status: in withdrawal Qualified Code(s): F17.213 - Nicotine dependence, cigarettes, with withdrawal (3) Alcohol intoxication Current Visit: No Status: Acute Qualifiers: Complication of substance-induced condition: uncomplicated Qualified Code(s ): F10.920 - Alcohol use, unspecified with intoxication, uncomplicated (4) Alcohol-induced mood disorder Current Visit: No Status: Acute (5) OCD (obsessive compulsive disorder) Current Visit: No Status: Acute - Initial Treatment Plan Initial Treatment Plan: Celexa 40mg poqd. Seroquel 200mg po qhs
[2018-09-16] MEDS: NICOTINE 21 MG/24 HOURS TOPICAL PATCH TD SCH (10:33)
[2018-09-16] MEDS: PRENATAL VITAMINS W/ FOLIC ACID TABLET (FP) PO SCH (10:33)
[2018-09-16] MEDS: CITALOPRAM HYDROBROMIDE 20 MG TABLET (FP) PO SCH (10:33)
--- NOTE | 2018-09-16 13:36 | PN ---
[facility] CIWA - CIWA Score Nausea/Vomitin-No Nausea/No Vomiting Muscle Tremors: 3 Anxiety: 3 Agitation: 2 Paroxysmal Sweats: 2 Orientation: 0-Oriented Tacttile Disturbances: 0-None Auditory Disturbances: 0-None Visual Disturbances: 0-None Headache: 0-None Present CIWA-Ar Total Score: 10 S Progress Note (SOAP) Subjective: sweats anxiety restless Objective: 09/16/18 13:35 Vital Signs Temperature 98.1 F 09/16/18 10:41 Pulse Rate 51 L 09/16/18 10:41 Respiratory Rate 18 09/16/18 10:41 Blood Pressure 115/52 L 09/16/18 10:41 O2 Sat by Pulse Oximetry (%) Laboratory Tests 09/14/18 09/15/18 09/15/18 10:57 07:45 07:45 WBC 6.6 RBC 4.99 Hgb 13.9 Hct 42.0 MCV 84.0 MCH 27.7 MCHC 33.0 RDW 15.9 D Plt Count 261 MPV 8.4 Sodium 139 Potassium 4.2 Chloride 105 Carbon Dioxide 29 Anion Gap 4 L BUN 23 H Creatinine 0.8 Creat Clearance w eGFR > 60 Random Glucose 86 Calcium 9.0 Total Bilirubin 0.3 AST 41 H ALT 84 H Alkaline Phosphatase 100 Total Protein 6.7 Albumin 3.3 L Urine Color Yellow Urine Appearance Clear Urine pH 6.0 Ur Specific [place] 1.015 Urine Protein Negative Urine Glucose (UA) Negative Urine Ketones Negative Urine Blood Negative Urine Nitrite Negative Urine Bilirubin Negative Urine Urobilinogen Negative Ur Leukocyte Esterase Negative RPR Titer 09/15/18 07:45 WBC RBC Hgb Hct MCV MCH MCHC RDW Plt Count MPV Sodium Potassium Chloride Carbon Dioxide Anion Gap BUN Creatinine Creat Clearance w eGFR Random Glucose Calcium Total Bilirubin AST ALT Alkaline Phosphatase Total Protein Albumin Urine Color Urine Appearance Urine pH Ur Specific [place] Urine Protein Urine Glucose (UA) Urine Ketones Urine Blood Urine Nitrite Urine Bilirubin Urine Urobilinogen Ur Leukocyte Esterase RPR Titer Nonreactive aaox3 ambulating no acute distress Assessment: 09/16/18 13:35 withdrawal sx Plan: continue detox increase fluids
[2018-09-16] MEDS: chlordiazePOXIDE 5 MG CAPSULE PO SCH ×2 (17:42→22:05)
[2018-09-16] MEDS: THIAMINE HCL 100 MG TABLET (FP) PO SCH (21:55)
[2018-09-16] MEDS: IBUPROFEN 400 MG TABLET (FP) PO PRN (21:55)
[2018-09-16] MEDS: QUEtiapine FUMARATE 200 MG TABLET PO SCH (21:55)
[2018-09-16] MEDS: MELATONIN 5 MG TABLETS PO PRN (21:58)
[2018-09-17] MEDS: chlordiazePOXIDE 5 MG CAPSULE PO SCH ×2 (06:00→10:45)
[2018-09-17] MEDS: CITALOPRAM HYDROBROMIDE 20 MG TABLET (FP) PO SCH (10:49)
[2018-09-17] MEDS: PRENATAL VITAMINS W/ FOLIC ACID TABLET (FP) PO SCH (10:49)
[2018-09-17] MEDS: NICOTINE 21 MG/24 HOURS TOPICAL PATCH TD SCH (10:50)
--- NOTE | 2018-09-17 11:13 | PN ---
BHS Progress Note (SOAP) Subjective: low back pain sweats Objective: 09/17/18 11:11 Vital Signs Temperature 97.8 F 09/17/18 10:02 Pulse Rate 56 L 09/17/18 10:02 Respiratory Rate 18 09/17/18 10:02 Blood Pressure 103/55 L 09/17/18 10:02 O2 Sat by Pulse Oximetry (%) aaox3 ambulating no acute distress Assessment: 09/17/18 11:12 withdrawal sx Plan: continue detox lidocaine patch d/c in am
[2018-09-17] MEDS ORDERED: LIDOCAINE 5% TOPICAL PATCH TP ONE (11:30)
[2018-09-17] MEDS: chlordiazePOXIDE HCL 10 MG CAPSULE PO SCH ×2 (17:22→22:14)
[2018-09-17] MEDS ORDERED: LIDOCAINE PATCH REMOVAL MC SCH (22:00)
[2018-09-17] MEDS: THIAMINE HCL 100 MG TABLET (FP) PO SCH (22:14)
[2018-09-17] MEDS: MELATONIN 5 MG TABLETS PO PRN (22:15)
[2018-09-17] MEDS: QUEtiapine FUMARATE 200 MG TABLET PO SCH (22:15)
[2018-09-17] MEDS: IBUPROFEN 400 MG TABLET (FP) PO PRN (22:15)
[2018-09-18] MEDS: chlordiazePOXIDE HCL 10 MG CAPSULE PO SCH (06:21)
[2018-09-18 07:52] VITALS: BP 102/69; PULSE 53; TEMP 96.3
--- NOTE | 2018-09-18 09:44 | DS ---
[facility] Detox Discharge Summary Admission Date: 09/14/18 Discharge Date: 09/18/18 - History Present History: Alcohol Dependence - Physical Exam Results Vital Signs: Vital Signs Temperature 96.3 F L 09/18/18 07:51 Pulse Rate 53 L 09/18/18 07:51 Respiratory Rate 18 09/18/18 07:51 Blood Pressure 102/69 09/18/18 07:51 O2 Sat by Pulse Oximetry (%) - Treatment Hospital Course: Detox Protocol Followed, Detoxed Safely, Responded well, Discharged Condition Good, Rehab Referral Accepted - Medication Discharge Medications: Ambulatory Orders Citalopram Hydrobromide [Celexa -] 40 mg PO DAILY #30 tablet 09/16/18 Quetiapine Fumarate [Seroquel -] 200 mg PO HS #30 tablet 09/16/18 - Diagnosis (1) Alcohol dependence with uncomplicated withdrawal Status: Chronic (2) Alcohol-induced mood disorder Status: Acute (3) Insomnia Status: Acute (4) OCD (obsessive compulsive disorder) Status: Suspected Qualifiers: Obsessive-compulsive disorder type: unspecified Qualified Code(s): F42.9 - Obsessive-compulsive disorder, unspecified (5) Depression Status: Chronic (6) History of positive PPD Status: Chronic (7) Nicotine dependence Status: Chronic Qualifiers: Nicotine product type: cigarettes Substance use status: uncomplicated Qualified Code(s): F17.210 - Nicotine dependence, cigarettes, uncomplicated (8) Obesity (BMI 30.0-34.9) Status: Chronic - AMA Did Patient Leave Against Medical Advice: No
== END 2018-09-18 09:12 | disposition home or self-care (01) | DRG 897 ==
LOC: YASAS 12:53 → Y6N 17:20
PROVIDERS: ADMIT Surgery; ATTEND Surgery
PROC: HZ2ZZZZ Detoxification Services for Substance Abuse Treatment (ICD-10-PCS; principal; 2018-09-14)
DX: F10.230 Alcohol dependence with withdrawal, uncomplicated (principal); F10.220 Alcohol dependence with intoxication, uncomplicated; F10.24 Alcohol dependence with alcohol-induced mood disorder; F17.210 Nicotine dependence, cigarettes, uncomplicated; F42.9 Obsessive-compulsive disorder, unspecified; F32.9 Major depressive disorder, single episode, unspecified; G47.00 Insomnia, unspecified; R76.11 Nonspecific reaction to tuberculin skin test without active tuberculosis; R79.89 Other specified abnormal findings of blood chemistry; E66.9 Obesity, unspecified; Z68.30 Body mass index [BMI] 30.0-30.9, adult; R26.2 Difficulty in walking, not elsewhere classified; Z99.89 Dependence on other enabling machines and devices
CPT/HCPCS: 36415; 71046-TC-FY; 80053; 81003; 85027; 86593